=== PATIENT | female | born 1980 | race Hispanic/Latino ===

== ENCOUNTER 2022-02-15 09:20 | Emergency (ER) | payer BC ==
[~2022-02-15] VITALS: Ht 162.6 cm; Wt 77.1 kg
== END 2022-02-15 10:16 | disposition home or self-care (01) ==
LOC: FSED 09:50
DX: S61.212A Laceration without foreign body of right middle finger without damage to nail, initial encounter (principal); W26.8XXA Contact with other sharp object(s), not elsewhere classified, initial encounter; Y92.008 Other place in unspecified non-institutional (private) residence as the place of occurrence of the external cause
CPT/HCPCS: 99283